=== PATIENT | female | born 1945 | race Caucasian/White ===

== ENCOUNTER 2019-01-14 08:27 | Inpatient (IN) | payer MEDICARE, OTHER ==
[2019-01-03 09:28] LABS: ABSOLUTE BASOPHILS 0.1 thou/uL (0.0-0.2); ABSOLUTE EOSINOPHILS 0.2 thou/uL (0.0-0.7); ABSOLUTE LYMPHOCYTES 1.3 thou/uL (0.8-5.3); ABSOLUTE MONOCYTES 0.5 thou/uL (0.0-1.2); ABSOLUTE NEUTROPHILS 3.3 thou/uL (1.6-8.1); HEMATOCRIT 39.4 % (37.0-47.0); HEMOGLOBIN 13.2 gm/dL (12.0-15.0); LYMPHOCYTES 24.4 %; MCH 32.8 pg (26.0-34.0); MCHC 33.5 g/dL (28.0-37.0); MCV 97.7 fL (80.0-100.0); MONOCYTES 8.9 %; NUCLEATED RBCS 0 /100WBC; PLATELET COUNT* 244 thou/uL (150-400); POLYS 62.7 %; RBC 4.03 mil/uL (4.20-5.00); RDW-CV 13.5 % (10.5-14.5); WBC 5.2 thou/uL (4.0-11.0)
[2019-01-03 09:32] LABS: CALCIUM 8.7 mg/dL (8.5-10.1); CREATININE 1.2 mg/dL (0.6-1.3); POTASSIUM 4.3 mmol/L (3.5-5.1)
[2019-01-03 09:35] LABS: PROTIME 10.3 Seconds (9.20-11.50)
[2019-01-03 09:37] LABS: ALBUMIN 3.4 g/dL (3.4-5.0); TOTAL BILIRUBIN 0.4 mg/dL (<0.1-1.0); TOTAL PROTEIN 6.8 g/dL (6.4-8.2)
[2019-01-04 02:06] LABS: GLYCOHEMOGLOBIN (HGB A1C) 5.3 % (4.8-5.6)
--- NOTE | 2019-01-04 11:10 | EKG ---
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 : 1945 Requested By: Geraldo Rashid Order Number: [id number] Reading MD: Raffaele Pathak Measurements Intervals [place] Rate: 71 P: 74 MT: 164 QRS: 59 QRSD: 105 T: 72 QT: 399 QTc: 434 Interpretive Statements Sinus rhythm Borderline T abnormalities, anterior leads Compared to ECG 08/20/2018 13:06:47 Prolonged QT interval no longer present Electronically Signed On 01-04-2019 11:10:41 CDT by Raffaele Pathak [email or web address] <ELECTRONICALLY SIGNED> By: Raffaele Pathak MD, [facility] 01/04/19 1110 111 1112 Raffaele Pathak MD, FACC /EPI
[~2019-01-14] VITALS: Ht 170.2 cm; Wt 132.0 kg
--- NOTE | ~2019-01-14 | OP ---
[facility] [address] [place] [address] OPERATIVE REPORT Name: REMBERTOJAMAICA NUNEZ Room: [address] IN [facility].#: [id number] Admission: 01/14/19 Attend Phys: Yaritza Correa Discharge: Date of : 47 Report #: [id number] THIS REPORT FOR: //name// CC: Linsey Huff DATE OF SERVICE: 01/14/2019 PREOPERATIVE DIAGNOSIS: Advanced degenerative joint disease of the right knee. POSTOPERATIVE DIAGNOSIS: Advanced degenerative joint disease of the right knee. OPERATION PERFORMED: Right total knee arthroplasty. SURGEON: Geraldo Rashid DO ASSISTANTS: Linsey Robb PA-C and Jim Foy DO. ESTIMATED BLOOD LOSS: 175 mL. ANTIBIOTICS: 2 g IV Ancef given preoperatively. ANESTHESIA: Spinal plus local anesthetic cocktail injected into the operative field. DRAINS: None. SPECIMENS: None. COMPLICATIONS: None. CONDITION: Stable. DISPOSITION: PACU to Med/Surg floor. IMPLANTS: Biomet SMICguard total knee system was used with the following components: 1. A size 75 mm fixed cruciate tibial baseplate. 2. A size 67.5 mm CR femoral component. 3. A size 31 x 8 mm asymmetrical patellar component. 4. A size 12-mm thickness anterior stabilized tibial bearing and also 2 bags of Palacos bone cement. INDICATIONS FOR SURGERY: The patient is a pleasant 73-year-old female who has had longstanding right knee pain. X-rays are consistent with severe [facility] [address] [place] [address] OPERATIVE REPORT Name: JAMAICA SR Room: [place] [address] ADM IN .R.#: [id number] Admission: 01/14/19 Attend Phys: Yaritza Correa Discharge: Date of : 47 Report #: [id number] degenerative changes with loss of joint space, subchondral sclerosis, osteophytic lipping. She had tried and failed conservative treatment over the last year with anti-inflammatory medications by mouth, activity modifications, and intra-articular steroid injections. These initially did provide her some relief; however, lately they have not given her any relief. She has had progression of her symptoms, which are now interfering with her activities of daily living. Therefore, we did recommend a right total knee arthroplasty. Risks, indications, and treatment alternatives were reviewed with the patient and her informed consent was signed. DESCRIPTION OF PROCEDURE: The patient was identified in the preoperative holding area with the right knee was confirmed by the patient to the operative site marked. She was transferred to the operating suite and placed on the operating table in supine position where anesthesia was then induced. The well-padded pneumatic tourniquet was placed on the right proximal thigh, this was inflated at initially 295 mmHg. However, she was bleeding through the tourniquet and therefore this was then increased to 350 mmHg throughout the procedure. The right lower extremity was then sterilely prepped and draped in the usual fashion. A time-out was then performed confirming our safety checklist has been completed and all the OR personnel was in agreement. A standard midline incision was marked out over the anterior aspect of the knee and sharp dissection was carried down through the skin and subcutaneous tissue down to the level of the capsule. A new scalpel was then used to make our standard medial parapatellar arthrotomy. The infrapatellar fat pad was excised and the knee was hyperflexed. The drill was introduced into the intramedullary canal of the femur and the intramedullary cutting block was then set to resect 10 mm at 5 degrees of valgus. This cutting block was then pinned into position and the reciprocating saw was used to make the cut. The bony wafers were then removed. The distal femur was sized to a 67.5 and 3-degree external rotation holes were drilled. The 4-in-1 cutting block was then impacted and pinned onto the distal femur. The collateral ligaments were protected with Hohmann retractors and the anterior, posterior condylar and anterior and posterior chamfer cuts were then made through the capture block. Bony wafers were then removed. At this time, we proceeded to the proximal tibia. The extramedullary tibial guide was set in all planes. Initially this was set to resect 8 mm of thickness. However, this left us with a very tight extension and flexion block. Therefore, we did proceed to cut an additional 4 mm and a cut was made through the capture block, making sure to protect the collateral ligaments as well as a popliteal structures and the patellar tendon. The bony wafer was then removed. At this time, we rechecked. Finally, 10 block spacer fits snugly in both flexion and extension. There was noted to be some tightness medially. The knee was then placed in 90 degrees of flexion and a release of the medial collateral ligament was performed with a 10 blade scalpel, which gave a nice subtle release from the medial side. At this time, the medial osteophytes were also removed with the rongeur. The meniscal and ACL remnants were excised. The tibia was then sized and the appropriate sized tibial baseplate [place] [address] OPERATIVE REPORT Name: JAMAICA SR Room: 150[address] [facility] IN [facility]#: [id number] Admission: 01/14/19 Attend Phys: Yaritza Correa Discharge: Date of : 47 Report #: [id number] The femur trial component was then impacted onto the distal femur. A trial spacer was placed and taken through full range of motion. There was some laxity with a 10-mm spacer. Therefore, we did proceed with a 12 mm spacer, which gave excellent range of motion and stability in all planes. We proceeded with resurfacing the patella as there were significant degenerative changes. We used the Carter reaming system initially; however, because of the asymmetrical size of her patella, it did not ream symmetrically therefore we did finish the cut with a freehand technique. This did leave us with a nice flush cut surface of the patella. The patella was then sized and a 3 peg holes were drilled and the patellar button was placed. The knee was then placed through full range of motion. The patella was found to be tracking appropriately. The trial components were then used to prepare for final implantation by drilling of the femur and reaming and using the cruciform punch for the tibia. All the trial components were then removed. The knee was copiously irrigated. The anesthetic cocktail was injected into the posterior capsular structures as well as the surrounding periosteum. The bone cement was mixed on the back table and applied to the back surface of the final components. The bone was dried and the bone cement was pressurized by hand into the inner stitches of the bone. We did use a small drill bit on the medial side of the tibial plateau to improve cement interdigitation. The final components were then impacted into place, beginning with the tibia, followed by the femur and finally the patellar component, which was clamped into position. All the excess bone cement was removed. The knee was taken through full range of motion with the 12 mm spacer, which did give us excellent range of motion and stability in all planes. Therefore, we did proceed with this as a final tibial bearing. The trial spacer was removed. The knee was once again copiously irrigated. Excess cement was removed and the final spacer was locked into position with a locking bar. The knee was placed in full extension and was copiously irrigated and vancomycin powder was sprinkled throughout. The knee was found to have 0 to 130 degrees of motion with excellent stability in all planes. The knee was then placed in 90 degrees of flexion while layered closure was performed beginning with #1 Vicryl suture in a [id number] fashion on the capsular layer. This was then oversewn with the large nonabsorbable Stratafix suture throughout the extensor mechanism. Subcutaneous layer was then reapproximated with 2-0 Monocryl suture in a buried fashion. The subcuticular layer was reapproximated with the 3-0 Stratafix suture. Skin glue was applied and allowed to dry and a sterile Mepilex dressing was applied followed by thigh high TANYA hose. Sponge and needle counts reported correct x 2 per the OR personnel. There were no apparent complications and she was transferred to the PACU in stable condition. ATTESTATION: Dr. Geraldo Rashid was present for the entirety of the procedure including all the vital portions. There was a need for multiple assistance as [address] [place] [address] OPERATIVE REPORT Name: JAMAICA SR Room: [address] IN M.R.#: [id number] Admission: 01/14/19 Attend Phys: Yaritza Correa Discharge: Date of : 47 Report #: [id number] her morbid obesity made it very difficult for positioning, retraction and closing throughout. By: 1212 1319Geraldo Rashid DO /nt
[~2019-01-14 08:27] MED LIST: ADVAIR; ALBUTEROL2.5 MG/31 INH; ALTERA NEBULIZ1 EACH; BENZONATATE200 MG PO; CEFPODOXIME PR200 M1 PO; CEFTIN500 MG PO; CENTRUM SILVER1 EAC4 PO; CHERATUSSIN DA480 ML PO; COLACE100 MG PO; DUONEB 2.5-0.5 M3 ML INH; ELEMENTAL CALC600 MG PO; EVISTA PO; FLUOXETINE HCL20 M1 PO; GABAPENTIN 100100 MG PO; GLUCOSAMINE HC500 MG PO; HYDROCODONE-AP1 EAC6; HYDROCODONE-AP1 EAC6 PO; LEVAQUIN 500 M500 M2; LEVAQUIN 500 M500 M2 PO; LOZENGES1 EACH PO; MACULAR VITAMI1 EACH PO; MIRALAX17 GM PO; MOBIC7.5 MG PO; MOM PO; MONTELUKAST SOD10 MG PO; MUCINEX TA600 MG/TA2 PO; MUCUS RELIEF600 MG PO; NEURONTIN 300300 M1 PO; OPANA5 M1; OXYCODONE HCL 55 MG PO; PERCOCET 7.5-31 EACH PO; PREDNISONE 10 M10 M1; PREDNISONE 10 M10 M1 PO; PREDNISONE 20 M20 M1 PO; PREDNISONE10 MG PO; PRESERVISION A1 EAC2 PO; PROAIR HFA8.5 GM INH; PROBIOTIC1 EAC1 PO; PROTONIX40 M2 PO; PROZAC20 MG PO; QVAR 40 MCG INH; QVAR8.7 G1 INH; SINGULAIR 10 MG10 M1 PO; SYMBICORT160 MCG/4. INH; TESSALON PERLE100 MG PO; TIROSINT150 MCG PO; VITAMIN E400 UNIT PO; ZOFRAN ODT4 MG PO; [UNRECOGNIZED DRUG - OTHER] PO
[2019-01-14 08:57] VITALS: BP 155/102
[2019-01-14 14:33] VITALS: BP 132/69
[2019-01-14 17:00] VITALS: BP 147/94
[2019-01-14 19:40] VITALS: BP 157/88
[2019-01-15 00:03] VITALS: BP 127/79
[2019-01-15 04:04] VITALS: BP 152/71
[2019-01-15 05:17] LABS: HEMATOCRIT 34.9 % (37.0-47.0); HEMOGLOBIN 11.6 gm/dL (12.0-15.0)
[2019-01-15 07:52] VITALS: BP 171/86
[2019-01-15 16:00] VITALS: BP 166/72
[2019-01-15 20:20] VITALS: BP 139/71
[2019-01-16 04:14] LABS: HEMATOCRIT 30.3 % (37.0-47.0); HEMOGLOBIN 10.3 gm/dL (12.0-15.0)
[2019-01-16 08:00] VITALS: BP 148/87
[2019-01-16 16:12] VITALS: BP 136/71
[2019-01-16 17:03] VITALS: BP 136/71
[2019-01-16 19:44] VITALS: BP 140/70
[2019-01-17 02:00] VITALS: BP 155/72
[2019-01-17 07:50] VITALS: BP 133/69
[2019-01-17] MEDS ORDERED: ONDANSETRON HCL4 M2 PO (13:54)
[2019-01-17] MEDS ORDERED: FLEXERIL PO (15:06)
[2019-01-17] MEDS ORDERED: OXYCODONE HCL 55 MG PO (15:30)
[2019-01-17] MEDS ORDERED: NAPROSYN500 MG PO (15:35)
[2019-01-17] MEDS ORDERED: ELIQUIS2.5 MG PO (15:36)
[2019-01-17] MEDS ORDERED: LIDOCAINE PAIN1 EACH SUBLING (15:39)
[2019-01-17] MEDS ORDERED: MIRALAX17 GM PO (15:39)
== END 2019-01-17 16:37 | disposition home health service (06) | DRG 470 ==
LOC: M.SUR 08:27 → M.TBA 11:58 → M.ORTHSURG 11:58
PROVIDERS: Orthopaedic Surgery; ADMIT Internal Medicine
PROC: 0SRC0J9 Replacement of Right Knee Joint with Synthetic Substitute, Cemented, Open Approach (ICD-10-PCS; principal; 2019-01-14)
DX: M17.11 Unilateral primary osteoarthritis, right knee (principal); Z68.42 Body mass index [BMI] 45.0-49.9, adult; G89.29 Other chronic pain; M25.569 Pain in unspecified knee; J44.9 Chronic obstructive pulmonary disease, unspecified; G62.9 Polyneuropathy, unspecified; J45.909 Unspecified asthma, uncomplicated; E66.9 Obesity, unspecified; Z96.612 Presence of left artificial shoulder joint; M79.7 Fibromyalgia; K59.00 Constipation, unspecified; Z87.891 Personal history of nicotine dependence; Z79.899 Other long term (current) drug therapy

== ENCOUNTER 2020-05-14 05:17 | Inpatient (IN) | payer MEDICARE, OTHER ==
[~2020-05-14] VITALS: Ht 170.2 cm; Wt 132.0 kg
--- NOTE | ~2020-05-14 | OP ---
[address] [address] OPERATIVE REPORT Name: JAMAICA SR Room: [address] IN M.R.#: [id number] Admission: 05/14/20 Attend Phys: Yaritza Correa Discharge: Date of : 47 Report #: [id number] THIS REPORT FOR: cc: Jarad Sunshine APRN, William R APRN ~ Geraldo Rashid DO DATE OF SERVICE: 05/14/2020 PREOPERATIVE DIAGNOSIS: Left knee degenerative joint disease. POSTOPERATIVE DIAGNOSIS: Left knee degenerative joint disease. PROCEDURE PERFORMED: Left total knee arthroplasty. OPERATIVE SURGEON: Geraldo Rashid DO ASSISTANTS: Reid Diaz DO and Darci Levin DO ANTIBIOTICS: 3 g IV Ancef. ESTIMATED BLOOD LOSS: 200 mL. ANESTHESIA: General and local. TOURNIQUET: 50 minutes at 250 mmHg. SPECIMENS: None. DRAINS: None. COMPLICATIONS: None. DISPOSITION: Stable to PACU in Med/Surg floor. IMPLANTS: Left total knee arthroplasty utilizing the Biomet Vanguard system: 1. Size 71 tibial component. 2. Size 62. 3. Size 62.5 femoral component. 4. 10 mm anterior stabilized polyethylene component. 5. Size 31 asymmetric patella. INDICATIONS FOR PROCEDURE: The patient is a pleasant 75-year-old female who presented to [facility] for evaluation of left knee pain. She has been complaining of left knee pain for quite some time. Radiographs in the clinic demonstrated advanced degenerative joint disease with loss of joint [facility] [address] [place] [address] OPERATIVE REPORT Name: JAMAICA SR Room: [address] ADM IN M.R.#: [id number] Admission: 05/14/20 Attend Phys: Yaritza Correa Discharge: Date of : 47 Report #: [id number] space, subchondral sclerosis and osteophyte formation. She has undergone extensive conservative measures with no relief of her symptoms. We recommended proceeding with left total knee arthroplasty. The risks, benefits, complications and alternatives of the procedure were thoroughly discussed with the patient. She accepted the risks and wished to proceed. INTRAOPERATIVE FINDINGS: Upon evaluation of the left knee intraoperatively, there was noted to be findings of advanced degenerative joint disease, worse in the medial and patellofemoral compartments. There were eburnated bone edges as well as multiple periarticular osteophytes. DESCRIPTION OF PROCEDURE: The patient was seen and examined in the preoperative suite. The operative extremity was marked by the operative surgeon. Everyone in the preoperative suite was in agreement on correct side, site, patient and procedure. An adductor canal block was performed by Anesthesia. The patient was then transported to the operative suite and placed supine on a well-padded operating table. She was given the benefit of general anesthesia and 3 g IV Ancef. A tourniquet was placed on her left upper thigh that was inflated for a total of 50 minutes at 250 mmHg. The left lower extremity was then prepped and draped in the typical sterile fashion. A timeout was performed to confirm correct side, site, patient, and procedure. Everyone in the operative suite was in agreement. The procedure began by making an incision through skin and subcutaneous tissue down to the level of capsule with a scalpel. Medial and lateral skin flaps were then developed. A new scalpel was then utilized to make the standard median parapatellar arthrotomy. The medial periosteal sleeve was then developed with a knife and pickup. Next, the anterior horns of the medial and lateral menisci were excised. The patellar fat pad was then excised with sharp dissection. The knee was then brought into extension, the patella was everted, and the knee was flexed to 90 degrees. At this point, due to the patient's blood pressure and bleeding limiting the visual field, the tourniquet was inflated. We then turned our attention to drilling the femur. The femur canal was drilled and the femur intramedullary guide was then inserted and pinned into position. The patient did have an extension lag and therefore an extra 2 mm was taken off of the distal femur. The distal femoral cut was made in the standard fashion with a sagittal saw. The distal femur cutting guide was then removed. We then turned our attention to our tibial cut. The extramedullary tibial guide was pinned into position, the cut depth was confirmed with an amari wing, and the tibial cut was made in standard fashion. The extramedullary tibial guide was then removed, the knee was brought into extension and the 10 mm spacer block was then attempted to be inserted into the knee. The knee was tight in flexion and the decision was made to proceed with an extra 2 mm off the distal femur. The distal femur cutting guide was placed over the 2 pins, and the extra 2 mm was taken off in standard fashion with a sagittal saw. [place] [address] OPERATIVE REPORT Name: JAMAICA SR Room: [address] IN M.R.#: [id number] Admission: 05/14/20 Attend Phys: Yaritza Correa Discharge: Date of : 47 Report #: [id number] removed. We then retrialed the 10 mm spacer block. This demonstrated excellent balance in flexion and extension as well as in varus and valgus. We then turned our attention to finishing the cuts on the femur. The anterior and posterior sizer was then placed on the femur and drilled into 3 degrees of external rotation. The femur was sized at 62.5. The 62.5 4-in-1 cutting block was then inserted and nailed into position in 3 degrees of external rotation. The anterior and posterior chamfer cuts were then made in standard fashion. The 4-in-1 cutting block was removed and all excess bone was removed from the knee. We then turned our attention to excision of the remaining soft tissues. The remainder of the medial and lateral meniscus as well as ACL and PCL were then removed with electrocautery and Av. We then turned our attention to the tibia. We trialled several different tibial trays and the size 71 tibial component was the correct size and was pinned into position. The size 62.5 cruciate retained femoral component was then malleted into position. The size 10 trial polyethylene component was then inserted. The knee was taken through range of motion demonstrating excellent stability and balance in extension and mid flexion. The knee was balanced in varus and valgus. We then turned our attention to cutting the patella. Two Kochers were placed on the quad patellar tendon to aid in holding the patella while cutting. The patella was cut with a sagittal saw in the standard fashion. The patellar sizer was utilized and sized the patella to a 31. The patellar holes were drilled in the standard fashion. The trial 31 patellar component was then placed. The knee was once again taken through full range of motion demonstrating excellent tracking of the patella as well as stability throughout range of motion. The trial patella and femur were then removed. The tibia was then drilled and punched in the standard fashion. The tibial tray was removed. The knee was thoroughly irrigated with normal saline via pulsed lavage. The final tibia, femur and patellar components were cemented into position in the standard fashion. Excess cement was removed with a [place]. The trial 10 mm polyethylene component was inserted for compression. The knee was once again taken through range of motion and once again demonstrated excellent stability and balance. The trial polyethylene component was removed and the final 10 mm anterior stabilized polyethylene component was inserted and the bar ____ DICTATION ENDS HERE ABRUPTLY. By: 0741 1039Geraldo Rashid DO /yue
[~2020-05-14 05:17] MED LIST changes: +CRESTOR5 MG PO; +ELIQUIS2.5 MG PO; +FISH OIL 1,0001 EAC9 PO; +FLEXERIL PO; +LIDOCAINE PAIN1 EACH SUBLING; +NAPROSYN500 MG PO; +ONDANSETRON HCL4 M2 PO; +TURMERIC500 M2 PO; +VITAMIN B-121000 MC2 SUBLING; +VITAMIN C1000 MG PO
[2020-05-14 08:30] VITALS: BP 128/89
[2020-05-14 17:10] VITALS: BP 108/78
--- NOTE | 2020-05-14 19:29 | NUR ---
PATIENT ARRIVED FROM PACU AT 1710. PATIENT SETTLED TO ROOM. PATIENT DENIES ANY PAIN. PATIENT HAS ONQ PUMP AND ICE PACKS TO KNEE. PATIENT HAS SCD'A AND TANYA HOSE. PATIENT HAS EXCELLENT APPETITE WITH NO NAUSEA. PATIENT HAS NOT YET BEEN OUT OF BED. PATIENT DENIES ANY NEEDS AT THIS TIME. CALL LIGHT WITHIN REACH.
[2020-05-14 19:34] VITALS: BP 108/78
[2020-05-14 20:00] VITALS: BP 111/84
[2020-05-15 04:30] VITALS: BP 104/66
[2020-05-15 05:08] LABS: HEMATOCRIT 31.5 % (37.0-47.0); HEMOGLOBIN 10.6 gm/dL (12.0-15.0)
--- NOTE | 2020-05-15 05:33 | NUR ---
ASSUMED PT'S CARE @ 1900. ALERT AND ORIENTED. VSS ON RA. MEDS GIVEN PER EMAR. PT UP X2 ASSIST WITH GAIT BELT TO BSC THIS SHIFT. PRN PAIN MEDS GIVEN THIS SHIFT. FALL PRECAUTION IN PLACE. CALL LIGHT WITHIN REACH. HOURLY ROUNDNGS MADE. WILL CONTINUE TO MONITOR.
[2020-05-15 07:50] VITALS: BP 149/73
--- NOTE | 2020-05-15 12:25 | NUR ---
Pt is A&O. Resides at home alone. Normally independent and active. Pt has a walker and cane that she can use if needed.Hx of [facility]. No hox of SNF. Pt to dc to home today, Pt wants HH, Pt stated "I don't think that I can do outpt PT, I don't know if I will be able to drive and I don't have anyone that will be able to drive me." CM asked hospitalist to write HH orders at dc. CM faxed initial referral to [facility], dc orders to be faxed tomorrow to [phone]. Pt's friend to stay with her for a few days post dc, friend will provide dc transportation. RNCM to call in [employer] script for Pt.
[2020-05-15 14:00] VITALS: BP 134/61
[2020-05-15 15:03] VITALS: BP 108/78
[2020-05-15 16:38] LABS: ABSOLUTE BASOPHILS 0.1 thou/uL (0.0-0.2); ABSOLUTE EOSINOPHILS 0.1 thou/uL (0.0-0.7); ABSOLUTE LYMPHOCYTES 1.3 thou/uL (0.8-5.3); ABSOLUTE MONOCYTES 1.6 thou/uL (0.0-1.2); ABSOLUTE NEUTROPHILS 7.4 thou/uL (1.6-8.1); BASOPHILS 0.8 %; EOSINOPHILS 1.1 %; HEMATOCRIT 33.5 % (37.0-47.0); HEMOGLOBIN 11.1 gm/dL (12.0-15.0); LYMPHOCYTES 12.3 %; MCH 31.8 pg (26.0-34.0); MCHC 33.1 g/dL (28.0-37.0); MCV 96.1 fL (80.0-100.0); MPV 8.4 fl. (7.2-11.1); NUCLEATED RBCS 0 /100WBC; PLATELET COUNT* 220 thou/uL (150-400); POLYS 70.8 %; RBC 3.49 mil/uL (4.20-5.00); RDW-CV 13.9 % (10.5-14.5); WBC 10.5 thou/uL (4.0-11.0)
[2020-05-15 16:49] LABS: ALBUMIN 3.2 g/dL (3.4-5.0); CALCIUM 8.1 mg/dL (8.5-10.1); CREATININE 1.7 mg/dL (0.6-1.3); MAGNESIUM 2.2 mg/dL (1.8-2.4); POTASSIUM 4.5 mmol/L (3.5-5.1); TOTAL BILIRUBIN 0.5 mg/dL (<0.1-1.0); TOTAL PROTEIN 6.3 g/dL (6.4-8.2)
--- NOTE | 2020-05-15 17:00 | NUR ---
CALLED IN PRESCRIPTION FOR ELIQUIS WRITTEN EARLIER TO PTS PHARMACY- [facility]-7 [phone]. DRUG REQUIRED A PRIOR AUTH. PRIOR AUTH DONE IN [facility] COVER MY MEDS ON LINE. PA SAID COULD TAKE UP TO 24 HRS FOR DETERMINATION. NURSING CAN CALL PHARMACY AND SEE IF PA APPROVED. THEY WILL THEN GIVE YOU COPAY AMOUNT.
--- NOTE | 2020-05-15 17:12 | NUR ---
THIS NURSE AGREES WITH ASSESSMENT BY ANALY MCKEON
--- NOTE | 2020-05-15 18:54 | NUR ---
PT REMAINS ALERT AND ORIENTED BUT FORGETFUL AT TIMES. PT REMAINS ON RA. PT NEEDS ONE ASSIST WITH GAIT BELT. VSS. PAIN MEDS DOCUMENTED CONTROLLING PAIN. NO OTHER NEEDS AT THIS TIME. PT TO WORK WITH PT AGAIN TOMORROW. WILL CONTINUE TO MONITOR.
[2020-05-15 20:00] VITALS: BP 133/67
[2020-05-16 04:37] LABS: HEMATOCRIT 29.4 % (37.0-47.0); HEMOGLOBIN 10.1 gm/dL (12.0-15.0)
--- NOTE | 2020-05-16 04:45 | NUR ---
PT A&O X 4. SAT 9O-91% ON RA. CPAP WHILE SLEEPING. PAIN MANAGED WITH OXY IR. DRESSING TO LT KNEE C/D/I. ON Q PUMP IN PLACE. UP TO BSC WITH MODERATED ASSIST. CALL LIGHT WITHIN REACH. WILL CONTINUE TO MONITOR.
[2020-05-16 07:55] VITALS: BP 148/72
[2020-05-16 13:44] LABS: CALCIUM 8.6 mg/dL (8.5-10.1); CREATININE 1.3 mg/dL (0.6-1.3); POTASSIUM 4.4 mmol/L (3.5-5.1)
--- NOTE | 2020-05-16 15:47 | NUR ---
THIS NURSE AGREES WITH ASSESSMENT BY ANALY MCKEON
[2020-05-16 16:00] VITALS: BP 148/121
--- NOTE | 2020-05-16 17:51 | NUR ---
PT REMAINS ALERT, FORGETFUL AT TIMES. PT COMPLAINS OF PAIN TO LEFT KNEE. SURGICAL DRESSING REMAINS IN PLACE. PT WORKING WITH THERAPY. ON Q PUMP REMAINS IN PLACE. FALL RISK PRECAUTIONS IN PLACE. 02 @ 2L PLACED ON PT AFTER PAIN MEDS BECAUSE THEY MAKE HER SLEEPY. WILL CONTINUE TO MONITOR.
[2020-05-16 20:00] VITALS: BP 112/58
--- NOTE | 2020-05-17 04:39 | NUR ---
PT A&O. ON RA. MEDS GIVEN ORDERED. NO C/O PAIN. LT KNEE DRESSING C/D/I. UP TO BSC WITH MINIMUM ASSIST. ON Q PUMP IN PLACE. PT SLEEPING WITH HER HOME CPAP ON. CALL LIGHT WITHIN REACH. WILL CONTINUE TO MONITOR.
[2020-05-17 07:50] VITALS: BP 154/55
[2020-05-17] MEDS ORDERED: ELIQUIS5 MG PO (10:54)
[2020-05-17] MEDS ORDERED: ASPIRIN325 PO (11:25)
[2020-05-17 11:27] VITALS: BP 108/78
[2020-05-17 11:52] VITALS: BP 108/78
[2020-05-17 12:29] VITALS: BP 108/78
[2020-05-17 12:46] VITALS: BP 108/78
--- NOTE | 2020-05-17 12:54 | NUR ---
THIS NURSE AGREES WITH ASSESSMENT BY ANALY MCKEON
--- NOTE | 2020-05-17 13:31 | NUR ---
PT ALERT AND ORIENTED. PT STEADY WITH STANDBY ASSIST. VSS. DISCHARGE INSTRUCTIONS EXPLAINED. PAPER PRESCRIPTIONS GIVEN. ON Q PUMP REMAINS IN PLACE. HH TO FOLLOW UP WITH PATIENT. PT TAKEN OUT BY WHEELCHAIR BY NURSING ALONG WITH BELONGINGS.
[2020-05-17 14:00] VITALS: BP 108/78
== END 2020-05-17 14:01 | disposition home health service (06) | DRG 469 ==
LOC: M.PRE → M.TBA 06:58 → M.3W 07:36 → M.PRE 09:12 → M.3W 16:56
PROVIDERS: Internal Medicine; Orthopaedic Surgery; ADMIT Internal Medicine; ATTEND Internal Medicine
PROC: 0SRD0J9 Replacement of Left Knee Joint with Synthetic Substitute, Cemented, Open Approach (ICD-10-PCS; principal; 2020-05-14)
PROC: 3E0T3BZ Introduction of Anesthetic Agent into Peripheral Nerves and Plexi, Percutaneous Approach (ICD-10-PCS; 2020-05-14)
PROC: 5A09357 Assistance with Respiratory Ventilation, Less than 24 Consecutive Hours, Continuous Positive Airway Pressure (ICD-10-PCS; 2020-05-14)
PROC: 5A09357 Assistance with Respiratory Ventilation, Less than 24 Consecutive Hours, Continuous Positive Airway Pressure (ICD-10-PCS; 2020-05-16)
PROC: 5A09357 Assistance with Respiratory Ventilation, Less than 24 Consecutive Hours, Continuous Positive Airway Pressure (ICD-10-PCS; 2020-05-17)
DX: M17.12 Unilateral primary osteoarthritis, left knee (principal); N17.0 Acute kidney failure with tubular necrosis; Z68.42 Body mass index [BMI] 45.0-49.9, adult; F32.9 Major depressive disorder, single episode, unspecified; E66.01 Morbid (severe) obesity due to excess calories; I10 Essential (primary) hypertension; M79.7 Fibromyalgia; J44.9 Chronic obstructive pulmonary disease, unspecified; G62.9 Polyneuropathy, unspecified; Z96.612 Presence of left artificial shoulder joint; Z79.899 Other long term (current) drug therapy; Z85.3 Personal history of malignant neoplasm of breast; Z87.891 Personal history of nicotine dependence; Z72.89 Other problems related to lifestyle

== ENCOUNTER 2021-06-30 09:56 | Emergency (ER) | payer MEDICARE, OTHER ==
[~2021-06-30] VITALS: Ht 172.7 cm; Wt 127.0 kg
[~2021-06-30 09:56] MED LIST changes: +ASPIRIN325 PO; +ELIQUIS5 MG PO
[2021-06-30 10:47] LABS: ABSOLUTE BASOPHILS 0.1 thou/uL (0.0-0.2); ABSOLUTE EOSINOPHILS 0.2 thou/uL (0.0-0.7); ABSOLUTE LYMPHOCYTES 1.4 thou/uL (0.8-5.3); ABSOLUTE MONOCYTES 0.4 thou/uL (0.0-1.2); ABSOLUTE NEUTROPHILS 3.6 thou/uL (1.6-8.1); BASOPHILS 1.1 %; EOSINOPHILS 4.1 %; HEMATOCRIT 37.5 % (37.0-47.0); HEMOGLOBIN 12.6 gm/dL (12.0-15.0); LYMPHOCYTES 23.9 %; MCH 31.6 pg (26.0-34.0); MCHC 33.5 g/dL (28.0-37.0); MCV 94.1 fL (80.0-100.0); MONOCYTES 7.5 %; MPV 8.1 fl. (7.2-11.1); NUCLEATED RBCS 0 /100WBC; PLATELET COUNT* 202 thou/uL (150-400); POLYS 63.4 %; RBC 3.99 mil/uL (4.20-5.00); RDW-CV 14.1 % (10.5-14.5); WBC 5.7 thou/uL (4.0-11.0)
[2021-06-30 10:52] LABS: CALCIUM 8.2 mg/dL (8.5-10.1); CREATININE 1.1 mg/dL (0.6-1.3); POTASSIUM 4.2 mmol/L (3.5-5.1)
[2021-06-30 11:03] LABS: TOTAL BILIRUBIN 0.3 mg/dL (<0.1-1.0); TOTAL PROTEIN 6.2 g/dL (6.4-8.2)
[2021-06-30 11:34] LABS: URINE BILIRUBIN NEGATIVE (Negative); URINE BLOOD NEGATIVE (Negative); URINE CLARITY CLEAR; URINE COLOR YELLOW; URINE GLUCOSE-RANDOM NEGATIVE (Negative); URINE KETONES NEGATIVE (Negative); URINE LEUKOCYTES-REFLEX NEGATIVE (Negative); URINE NITRITE-REFLEX NEGATIVE (Negative); URINE PROTEIN NEGATIVE (Negative); URINE UROBILINOGEN 0.2 E.U./dl (0.2-1.0)
[2021-06-30] MEDS ORDERED: NEBULIZER MISCELL (12:10)
[2021-06-30] MEDS ORDERED: TESSALON PERLE100 MG PO (12:10)
[2021-06-30 12:23] VITALS: BP 133/68
--- NOTE | 2021-06-30 14:03 | EKG ---
[place] [address] ELECTROCARDIOGRAM REPORT Name: JAMAICA SR Room: 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: : 1945 Requested By: Orquidea Pepe Order Number: [id number] MD: Raffaele Pathak Measurements Intervals [place] Rate: 79 P: 80 CA: 160 QRS: 71 QRSD: 102 T: 61 QT: 364 QTc: 418 Interpretive Statements Sinus rhythm Low voltage, precordial leads Compared to ECG 05/07/2020 10:37:16 No significant changes Electronically Signed On 06-30-2021 14:03:39 [employer] GROWING SUPERVISOR by Raffaele Pathak [email or web address] <ELECTRONICALLY SIGNED> By: Raffaele Pathak MD, [facility] 06/30/21 1403 1054 1054 Raffaele Pathak MD, [facility] /EPI
== END 2021-06-30 12:23 | disposition home or self-care (01) ==
LOC: M.ERS 09:56
PROVIDERS: Student in an Organized Health Care Education/Training Program
DX: R05.9 Cough, unspecified (principal); Z20.822 Contact with and (suspected) exposure to COVID-19; J44.9 Chronic obstructive pulmonary disease, unspecified; Z87.891 Personal history of nicotine dependence